=== PATIENT | female | born 1965 | race Caucasian/White ===

== ENCOUNTER → 2017-12-04 09:12 | Outpatient (CLI) | payer OTHER, SELFPAY ==
[2017-12-04 10:27] LABS: Add Manual Diff / Slide Review NO; Basophils Percent Auto 0.4 % (0-2); Eosinophils Percent Auto 2.8 % (2-4); Hematocrit 39.4 % (36-46); Hemoglobin 13.7 g/dL (12.0-16.0); Lymphocytes Percent Auto 27.2 % (25-40); Mean Corpuscular HGB Conc 34.9 % (30-36); Mean Corpuscular Hemoglobin 32.6 PG (26-34); Mean Corpuscular Volume 93.6 fL (80-100); Monocytes Percent Auto 5.7 % (3-14); Neutrophils Absolute Auto 4600 /uL (3000-5900); Neutrophils Percent Auto 63.9 % (50-75); Platelet Count 278 X10^3/uL (150-400); Red Blood Cell Count 4.21 X10^6/uL (4.0-5.2); Red Cell Distribution Width 13.4 % (11.6-14.8); White Blood Cell Count 7.1 X10^3/uL (4.5-11.0)
[2017-12-04 10:46] LABS: Alanine Aminotransferase 31 IU/L (9-52); Albumin Globulin Ratio 1.5 (1.0-2.8); Alkaline Phosphatase 66 U/L (38-126); Aspartate Aminotransferase 20 IU/L (14-36); Bilirubin Total 0.4 mg/dL (0.2-1.3); Blood Urea Nitrogen 12 mg/dL (7-17); Calcium 9.1 mg/dL (8.4-10.2); Carbon Dioxide 26 mmol/L (22-32); Chloride 104 mmol/L (98-107); Cholesterol 224 mg/dL (140-199); Estimated Glomerular Filt Rate > 60.0 mL/min (>60); Globulin 2.7 g/dL (1.7-4.1); Glucose 101 mg/dL (70-100); HDL Cholesterol 46 mg/dL (40-60); HEMOLYSIS < 15 (0-50); LDL Cholesterol Calculated 149 mg/dL (<100); Potassium 4.3 mmol/L (3.4-5.1); Sodium 140 mmol/L (137-145); Total Protein 6.7 g/dL (6.3-8.2); Triglycerides 147 mg/dL (35-150)
[2017-12-04 10:48] LABS: C-Reactive Protein Quant < 0.5 mg/dL (<1.0); Rheumatoid Factor < 8.6 IU/mL (<12.0)
[2017-12-04 11:38] LABS: Erythrocyte Sedimentation Rate 5 MM/HR (0-20)
[2017-12-04 11:48] LABS: Thyroid Stimulating Hormone 3.04 uIU/mL (0.47-4.68)
[2017-12-07 20:40] LABS: ANA Screen NEGATIVE (Negative); DNA Antibody Crithidia IFA NEGATIVE (Negative); Rheumatoid Factor <14 IU/mL; Sjogren Antiboday SS-A <1.0 NEG AI (<1.0 NEGATIVE); Sjogren Antiboday SS-B <1.0 NEG AI (<1.0 NEGATIVE); Sm Antibody <1.0 NEG AI (<1.0 NEGATIVE); Sm/RNP Antibody <1.0 NEG AI (<1.0 NEGATIVE)
== END ==
PROVIDERS: PCP Internal Medicine; Visit Provider Internal Medicine
DX: F31.70 Bipolar disorder, currently in remission, most recent episode unspecified (principal); H91.90 Unspecified hearing loss, unspecified ear; M25.541 Pain in joints of right hand; M25.542 Pain in joints of left hand; Z82.61 Family history of arthritis
CPT/HCPCS: 36415; 80053; 80061; 84443; 85025; 85651; 86038; 86140; 86430

== ENCOUNTER → 2019-01-08 07:46 | Outpatient (CLI) | payer OTHER, SELFPAY ==
--- NOTE | 2019-01-08 | DI.US.S_ITS ---
PROCEDURE: US THYROID INDICATIONS: PROVIDER PALP THYROID NODULE TECHNIQUE: Real-time scanning was performed of the thyroid gland, with image documentation. COMPARISON: None. FINDINGS: Right: Thyroid lobe measures 3.9 x 1.1 x 1.0 cm, and is homogeneous in echotexture. Left: Thyroid lobe measures 4.1 x 1.4 x 1.0 cm, and is homogenous in echotexture. Isthmus: 4.0 mm thick. Nodule number: 1 Location: Isthmus Size: 0.7 x 0.3 x 0.9 cm. Composition: Predominately solid Echogenicity: Hypoechoic Shape: wider than tall. Margins: Smooth Echogenic foci: None Total points: 4 ACR TI-RADS category: Moderately suspicious Nodule number: 2 Location: Left mid Size: 0.6 x 0.6 x 0.5 cm. Composition: Solid Echogenicity: Hypoechoic Shape: wider than tall. Margins: Smooth Echogenic foci: None Total points: 4 ACR TI-RADS category: Moderately suspicious IMPRESSION: 2 small moderately suspicious thyroid nodules. Recommend continued followup ultrasound as detailed below. ACR TI-RADS definitions and recommendations: TI-RADS 1 (benign): 0 points. FNA not needed. TI-RADS 2 (not suspicious): 2 points. FNA not needed. TI-RADS 3 (mildly suspicious): 3 points. * FNA if 2.5 cm or larger, follow up if 1.5 cm or larger (at 1, 3, and 5 years). TI-RADS 4 (moderately suspicious): 4-6 points. * FNA if 1.5 cm or larger, follow up if 1 cm or larger (at 1, 2, 3, and 5 years). TI-RADS 5 (highly suspicious): 7 points or more. * FNA if 1 cm or larger, follow up if 0.5 cm or larger (every year for 5 years). Dictated by: Aaron COX Interpreted: Daisy Jane MD on 01/08/2019 at 13:10 Approved by: Daisy Jane M.D. on 01/08/2019 at 14:02
[2019-01-08 09:09] LABS: Add Manual Diff / Slide Review NO; Basophils Absolute Auto 100 /uL (0-100); Basophils Percent Auto 0.8 % (0-2); Eosinophils Absolute Auto 200 /uL (0-450); Eosinophils Percent Auto 2.7 % (2-4); Hematocrit 38.8 % (36-46); Hemoglobin 13.3 g/dL (12.0-16.0); Lymphocytes Absolute Auto 2200 /uL (1100-4500); Lymphocytes Percent Auto 32.1 % (25-40); Mean Corpuscular HGB Conc 34.2 % (30-36); Mean Corpuscular Hemoglobin 32.4 PG (26-34); Mean Corpuscular Volume 94.8 fL (80-100); Monocytes Absolute Auto 400 /uL (0-900); Monocytes Percent Auto 5.6 % (3-14); Neutrophils Absolute Auto 4100 /uL (1500-7000); Neutrophils Percent Auto 58.8 % (50-75); Platelet Count 289 X10^3/uL (150-400); Red Blood Cell Count 4.09 X10^6/uL (4.0-5.2); Red Cell Distribution Width 13.4 % (11.6-14.8); White Blood Cell Count 6.9 X10^3/uL (4.5-11.0)
[2019-01-08 09:19] LABS: Alanine Aminotransferase 15 IU/L (9-52); Albumin 4.2 g/dL (3.5-5.0); Albumin Globulin Ratio 1.5 (1.0-2.8); Alkaline Phosphatase 63 U/L (38-126); Aspartate Aminotransferase 17 IU/L (14-36); Bilirubin Total 0.3 mg/dL (0.2-1.3); Blood Urea Nitrogen 12 mg/dL (7-17); Calcium 9.1 mg/dL (8.4-10.2); Carbon Dioxide 25 mmol/L (22-32); Chloride 96 mmol/L (98-107); Cholesterol 218 mg/dL (140-199); Estimated Glomerular Filt Rate > 60.0 mL/min (>60); Globulin 2.8 g/dL (1.7-4.1); Glucose 97 mg/dL (70-100); HDL Cholesterol 47 mg/dL (40-60); HEMOLYSIS < 15 (0-50); LDL Cholesterol Calculated 146 mg/dL (<100); Potassium 4.2 mmol/L (3.4-5.1); Sodium 130 mmol/L (137-145); Triglycerides 123 mg/dL (35-150)
[2019-01-08 09:37] LABS: Vitamin D 25 Hydroxy (D3) 29.2 ng/mL (30.0-100.0)
[2019-01-08 09:50] LABS: TSH w/ Reflex to FT4 2.96 uIU/mL (0.47-4.68)
== END ==
LOC: US 08:17 → AC 10:43 → US 01-20 11:32
PROVIDERS: Family Provider Nurse Practitioner Psychiatric/Mental Health; Visit Provider Internal Medicine
DX: Z13.220 Encounter for screening for lipoid disorders (principal); Z13.21 Encounter for screening for nutritional disorder; E04.2 Nontoxic multinodular goiter; N95.1 Menopausal and female climacteric states
CPT/HCPCS: 36415; 76536; 80053; 80061; 82306; 83001; 83002; 84443; 85025

== ENCOUNTER → 2019-02-26 10:49 | Outpatient (CLI) | payer OTHER, SELFPAY ==
[2019-02-26 12:20] LABS: Sodium Urine Random 153 mmol/L (30-90)
[2019-02-26 12:29] LABS: Blood Urea Nitrogen 15 mg/dL (7-17); Calcium 9.6 mg/dL (8.4-10.2); Carbon Dioxide 26 mmol/L (22-32); Chloride 98 mmol/L (98-107); Estimated Glomerular Filt Rate > 60.0 mL/min (>60); Glucose 91 mg/dL (70-100); HEMOLYSIS < 15 (0-50); Potassium 4.7 mmol/L (3.4-5.1); Sodium 134 mmol/L (137-145)
[2019-03-04 13:20] LABS: Osmolality Urine 725
[2019-03-04 13:23] LABS: Osmolality, Serum 276
== END ==
PROVIDERS: Family Provider Nurse Practitioner Psychiatric/Mental Health; PCP Internal Medicine; Visit Provider Internal Medicine
DX: E87.1 Hypo-osmolality and hyponatremia (principal)
CPT/HCPCS: 36415; 80048; 83930; 83935; 84300

== ENCOUNTER → 2019-04-01 10:30 | Outpatient (CLI) | payer OTHER, SELFPAY ==
--- NOTE | 2019-04-01 | DI.RAD.S_ITS ---
PROCEDURE: XR CHEST 2V INDICATIONS: pulmonary distress TECHNIQUE: 2 views of the chest were acquired. COMPARISON: None. FINDINGS: Surgical changes and devices: None. Lungs and pleura: Lungs are clear. No pleural effusions or pneumothorax. Mediastinum: Mediastinal contours are normal. Heart size is normal. Bones and chest wall: No suspicious bony abnormalities. Soft tissues appear unremarkable. IMPRESSION: No acute cardiopulmonary disease process. Dictated by: Cleo Beltran MD, PhD on 04/01/2019 at 10:56 Approved by: Cleo Beltran MD, PhD on 04/01/2019 at 10:56
== END ==
PROVIDERS: Family Provider Nurse Practitioner Psychiatric/Mental Health; PCP Internal Medicine; Visit Provider Internal Medicine
DX: E22.2 Syndrome of inappropriate secretion of antidiuretic hormone (principal)
CPT/HCPCS: 71046

== ENCOUNTER → 2020-01-25 08:13 | Outpatient (CLI) | payer OTHER, SELFPAY ==
[2020-01-25 08:43] LABS: Add Manual Diff / Slide Review NO; Basophils Absolute Auto 0 /uL (0-100); Basophils Percent Auto 0.9 % (0-2); Eosinophils Absolute Auto 200 /uL (0-450); Eosinophils Percent Auto 3.3 % (2-4); Hemoglobin 12.9 g/dL (12.0-16.0); Lymphocytes Absolute Auto 2000 /uL (1100-4500); Lymphocytes Percent Auto 35.3 % (25-40); Mean Corpuscular Hemoglobin 32.4 PG (26-34); Mean Corpuscular Volume 95.3 fL (80-100); Monocytes Absolute Auto 400 /uL (0-900); Monocytes Percent Auto 7.2 % (3-14); Neutrophils Absolute Auto 3000 /uL (1500-7000); Neutrophils Percent Auto 53.3 % (50-75); Platelet Count 264 X10^3/uL (150-400); Red Blood Cell Count 3.99 X10^6/uL (4.0-5.2); Red Cell Distribution Width 13.6 % (11.6-14.8); White Blood Cell Count 5.7 X10^3/uL (4.5-11.0)
[2020-01-25 09:01] LABS: Alanine Aminotransferase 18 IU/L (<35); Albumin 3.7 g/dL (3.5-5.0); Albumin Globulin Ratio 1.4 (1.0-2.8); Alkaline Phosphatase 54 U/L (38-126); Aspartate Aminotransferase 18 IU/L (14-36); BUN Creatinine Ratio 22.2 (6-22); Bilirubin Total 0.4 mg/dL (0.2-1.3); Blood Urea Nitrogen 12 mg/dL (7-17); Calcium 8.5 mg/dL (8.4-10.2); Carbon Dioxide 27 mmol/L (22-32); Chloride 101 mmol/L (98-107); Cholesterol 209 mg/dL (140-199); Estimated Glomerular Filt Rate > 60.0 mL/min (>60); Globulin 2.7 g/dL (1.7-4.1); Glucose 98 mg/dL (70-100); HDL Cholesterol 56 mg/dL (40-60); HEMOLYSIS < 15 (0-50); LDL Cholesterol Calculated 121 mg/dL (<100); Potassium 4.2 mmol/L (3.4-5.1); Sodium 131 mmol/L (137-145); Total Protein 6.4 g/dL (6.3-8.2); Triglycerides 158 mg/dL (35-150)
[2020-01-25 09:35] LABS: Free T3, Triiodothyronine Free 2.56 pg/mL (2.77-5.27); T4 Total Thyroxine 4.18 ug/dL (5.5-11.0)
[2020-01-25 09:46] LABS: TSH w/ Reflex to FT4 3.07 uIU/mL (0.47-4.68)
[2020-01-25 11:33] LABS: Sodium Urine Random 215 mmol/L (30-90)
[2020-01-26 14:38] LABS: Osmolality Urine 812 mOsmol/kg (.); Osmolality, Serum 274 mOsmol/kg (275-295)
== END ==
PROVIDERS: Family Provider Nurse Practitioner Psychiatric/Mental Health; PCP Internal Medicine; Referring Provider Internal Medicine; Visit Provider Internal Medicine
DX: E78.5 Hyperlipidemia, unspecified (principal); E22.2 Syndrome of inappropriate secretion of antidiuretic hormone; E04.1 Nontoxic single thyroid nodule
CPT/HCPCS: 36415; 80053; 80061; 83930; 83935; 84300; 84436; 84443; 84481; 85025

== ENCOUNTER → 2020-04-25 09:13 | Outpatient (CLI) | payer OTHER, SELFPAY ==
--- NOTE | 2020-04-25 | DI.US.S_ITS ---
PROCEDURE: US THYROID INDICATIONS: NODULE TECHNIQUE: Real-time scanning was performed of the thyroid gland, with image documentation. COMPARISON: [facility], US, US THYROID, 01/08/2019, 11:03. FINDINGS: Right: Thyroid lobe measures 3.4 x 1.3 x 1.4 cm, and is homogeneous in echotexture. Left: Thyroid lobe measures 4.3 x 1.4 x 1.1 cm. Isthmus: 4 mm thick. Nodule number: 1 Location: Left mid thyroid Size: 0.6 x 0.6 x 0.5 cm, previously measuring 0.6 x 0.6 x 0.5 cm. Composition: Solid Echogenicity: Hypoechoic Shape: wider than tall. Margins: Smooth Echogenic foci: None. Total points: 4 ACR TI-RADS category: 4 There is a previously described nodule involving the isthmus which on the current study is seen to be a vessel with a color Doppler flow within it and not a thyroid nodule. IMPRESSION: Stable thyroid nodule seen within the left mid thyroid. The previously described isthmus nodule is a vessel and not a nodule. By published criteria, no specific imaging follow-up is recommended. ACR TI-RADS definitions and recommendations: TI-RADS 1 (benign): 0 points. FNA not needed. TI-RADS 2 (not suspicious): 2 points. FNA not needed. TI-RADS 3 (mildly suspicious): 3 points. * FNA if 2.5 cm or larger, follow up if 1.5 cm or larger (at 1, 3, and 5 years). TI-RADS 4 (moderately suspicious): 4-6 points. * FNA if 1.5 cm or larger, follow up if 1 cm or larger (at 1, 2, 3, and 5 years). TI-RADS 5 (highly suspicious): 7 points or more. * FNA if 1 cm or larger, follow up if 0.5 cm or larger (every year for 5 years). Dictated by: Michael Irving M.D. on 04/25/2020 at 9:50 Approved by: Michael Irving M.D. on 04/25/2020 at 9:52
== END ==
PROVIDERS: Family Provider Nurse Practitioner Psychiatric/Mental Health; PCP Internal Medicine; Referring Provider Internal Medicine; Visit Provider Internal Medicine
DX: E04.1 Nontoxic single thyroid nodule (principal)
CPT/HCPCS: 76536

== ENCOUNTER → 2021-06-23 14:40 | Outpatient (CLI) | payer OTHER, SELFPAY ==
--- NOTE | 2021-06-23 | DI.MG.S_ITS ---
BILATERAL DIGITAL SCREENING MAMMOGRAM 3D/2D WITH CAD: 06/23/2021 CLINICAL: Routine screening. Family history of breast cancer. Comparison is made to exams dated: 05/17/2020 mammogram and 03/04/2019 mammogram - outside location. The tissue of both breasts is heterogeneously dense. This may lower the sensitivity of mammography. Current study was also evaluated with a Computer Aided Detection (CAD) system. No significant masses, calcifications, or other findings are seen in either breast. There has been no significant interval change. IMPRESSION: NEGATIVE There is no mammographic evidence of malignancy. A 1 year screening mammogram is recommended. This exam was interpreted at Station ID: [id number]. NOTE: For mammograms, a report in lay terms will be sent to the patient. Approximately 15% of breast malignancies will not be visualized mammographically. In the management of a palpable breast mass, a negative mammogram must not discourage biopsy of a clinically suspicious lesion. Electronically Signed By: Bere woods/dante:06/23/2021 16:04:59 letter sent: Normal Exam ACR BI-RADS Category 1: Negative 3341F
== END ==
PROVIDERS: Family Provider Nurse Practitioner Psychiatric/Mental Health; PCP Internal Medicine; Referring Provider Internal Medicine; Visit Provider Internal Medicine
DX: Z12.31 Encounter for screening mammogram for malignant neoplasm of breast (principal); Z80.3 Family history of malignant neoplasm of breast
CPT/HCPCS: 77063; 77067

== ENCOUNTER → 2021-10-20 10:03 | Outpatient (CLI) | payer OTHER, SELFPAY ==
[2021-10-20 11:07] LABS: COVID19 -Nasal RAPID Negative (Negative)
== END ==
PROVIDERS: Family Provider Nurse Practitioner Psychiatric/Mental Health; PCP Internal Medicine; Visit Provider Surgery
DX: Z20.822 Contact with and (suspected) exposure to COVID-19 (principal); Z01.812 Encounter for preprocedural laboratory examination
CPT/HCPCS: 87635; C9803

== ENCOUNTER 2021-10-23 08:30 | Day surgery (SDC) | payer OTHER, SELFPAY ==
--- NOTE | 2021-10-23 | PATH_ITS ---
[facility] Accession Number: [id number] No. of containers..02 Tissue . 01 Material submitted: . PART A: colon - ASCENDING COLON POLYP PART B: colon - RECTOSIGMOID POLYP . 01 Diagnosis: A. Ascending Colon Polyp, Biopsy: Sessile serrated adenoma. . B. Rectosigmoid Polyp, Biopsy: Hyperplastic polyp. MRV 10/25/2021 1218 Local . 01 Electronically signed: . Amy David MD, Pathologist NPI- [id number] . 01 Gross description: . Part A: ASCENDING COLON POLYP: Received in formalin are 2 fragment(s) of ge, soft tissue measuring 1.5 x 0.5 x 0.1 cm to 0.5 x 0.4 x 0.1 cm submitted entirely in 1 cassette(s) Part B: RECTOSIGMOID POLYP: Received in formalin is 1 fragment(s) of ge, soft tissue measuring 0.3 x 0.2 x 0.1 cm submitted entirely in 1 cassette(s) /CPE 10/24/2021 0507 Local . 01 Pathologist provided ICD-10: D12.2, D12.7 . 01 CPT . 778471, 658720 Specimen Comment: A courtesy copy of this report has been sent to [phone] Performed at: 01 [facility] [address] [place] [address], [place], [place] [id number] MD Rohan Mcpherson MD Phone: [phone]
[2021-10-23 08:47] VITALS: BP 121/82; PULSE 84; RESP 18; TEMP 36.8; O2SAT 97; BMI 34.9
[2021-10-23] MEDS: SODIUM CHLORIDE 0.9% 1,000 ML 84 ML IV (09:06)
--- NOTE | 2021-10-23 09:29 | PM.HP.1 ---
History of Present Illness History of Present Illness Date Patient Seen: 10/23/21 Time Patient Seen: 09:29 Chief complaint: SDC Narrative: Here for colon cancer screening Patient History Medical History Bipolar disorder (~2003) Chicken pox (~1973) Depression (~1982) Hearing loss (~2005) Malaria (~1995) Surgical History Anesthesia History of anterior cruciate ligament surgery (~2002) History of rotator cuff surgery (~03/27/17) History of surgery (~2013) Family & Social History Family History Father Atrial fibrillation Hypertension Hyperlipidemia Mental health problem Depression Cognitive dysfunction Mother Hyperlipidemia Hypertension Brother Rheumatoid arthritis Grandfather Stroke Grandmother Mental health problem Depression Grandfather No problems noted. Grandmother Cancer Social History: household members spouse Tobacco & Substance use: Smoking Status Never smoker alcohol intake current alcohol intake frequency a few times a week Substance Use Type does not use Meds Home Medications and Allergies Home Medications Medication Instructions Recorded Confirmed Type bupropion HCl 300 mg 24 hr tablet, 300 mg PO QAM #90 tabs 10/18/21 10/23/21 Rx extended release calcium carbonate 600 mg calcium 600 mg PO DAILY 10/18/21 10/23/21 History (1,500 mg) tablet (Calcium) cholecalciferol (vitamin D3) 25 25 mcg PO DAILY 10/18/21 10/23/21 History mcg (1,000 unit) capsule multivitamin with iron-mineral 1 tab PO DAILY 10/18/21 10/23/21 History oxcarbazepine 600 mg tablet 1,200 mg PO BEDTIME #180 tabs 10/18/21 10/23/21 Rx (Trileptal) risperidone 2 mg tablet (Risperdal) 2 mg PO BEDTIME #90 tabs 10/18/21 10/23/21 Rx Allergies Allergy/AdvReac Type Severity Reaction Status Date / Time No Known Drug Allergies Allergy Verified 10/23/21 08:40 Review of Systems Review of Systems ROS: Yes All systems reviewed with the patient and are negative except as otherwise documented Exam Vital Signs (past 8 hours): - 10/23/21 08:47 Temperature 98.2 F Pulse Rate 84 Respiratory Rate 18 Blood Pressure 121/82 Pulse Oximetry 97 Oxygen Delivery Method Room Air Oxygen Delivery Method Room Air Const General: cooperative HENMT Head: normal to inspection Eyes General: appearance normal, both eyes and all related structures Neck Neck: normal visual inspection Chest Chest: normal inspection of the chest Resp Effort & Inspection: normal respiratory effort Cardio Rate: regular rate GI Inspection: normal to inspection Skin General: no rashes or lesions noted Neuro General: patient alert and patient awake Extrem General: normal to inspection and no pedal edema Psych Appearance: grossly normal Assessment & Plan Assessment & Plan narrative: 56-year-old female here for colon cancer screening. Colonoscopy is pursued today. Time Spent With Patient Critical Care time: I spent a total of [] minutes of critical care time on this patient's care today; this time is exclusive of procedural time.
--- NOTE | 2021-10-23 09:30 | PM.PREOP ---
Pre-operative Note COVID-19 COVID-19 status: Negative Result date/Date tested (Pos, Neg/Pending): 10/20/21 Criteria for continued procedure: Possibility delay results in more complex future surgery or treatment Interval Note History & Physical reviewed/Exam performed by Physician: Yes Changes to H&P: No ASA Class (for procedural sedation): II
--- NOTE | 2021-10-23 10:36 | P.OP.COLON_ITS ---
Operative Date/Time/Diagnoses Date of procedure: 10/23/21 Time of procedure: 10:37 Pre-op diagnosis: Colon cancer screening Post-op diagnosis: same Procedure & Clinicians Study performed: Colonoscopy with hot snare polypectomies Same procedure as scheduled: Yes Indications: Colon cancer screening Surgeon: Rodrigo Belle Procedure Notes SCOAP/Timeout: Done Procedure in detail: After the risks and benefits were explained, written and verbal informed consent was obtained. The patient was brought into the procedure room and placed into the left lateral decubitus position. Please see nurse before and after school daycare worker notes for sedation details. Digital rectal examination was accomplished. The scope was introduced into the patient and advanced under direct visualization to the cecum as identified by the appendiceal orifice and ileocecal valve. The scope was slowly withdrawn to carefully examine the mucosa for any defects or lesions. Comprehensive imaging was accomplished throughout the rectum including the dentate line. The colon was decompressed, the scope was then removed from the patient who tolerated the procedure well. Adult colonoscope Bowel prep adequate Scope withdrawal time: 24 minutes Sedation minutes: 32 Complications: none Impression: There was a 8-9 mm sessile polyp in the ascending colon. This was removed with hot snare. A typically, after the snare had come through the polyp there was a fibrin scored that remained and did not seem to appropriately sever with application of the hot snare. I used appear cut to sever this cord of tissue. There were no bleeding complications. However but because this was an unusual feature with polypectomy, I elected to place a couple of prophylactic Endo clips over the polypectomy defect. There was a smaller 5 mm polyp at the rectosigmoid junction also removed with hot snare. No additional pathology was appreciated throughout. Endoscopic diagnosis colon polyps Post-procedure Plan for aftercare: 1. Await histopathology 2. Timing of repeat colonoscopy will be contingent on pathology results. Disposition: PACU
[2021-10-23 10:39] VITALS: BP 116/94; PULSE 72; RESP 24; TEMP 36.8; O2SAT 100
[2021-10-23 10:44] VITALS: BP 114/80; PULSE 79; RESP 20; TEMP 36; O2SAT 100
[2021-10-23 10:49] VITALS: BP 117/78; PULSE 66; RESP 16; TEMP 36.1; O2SAT 100
[2021-10-23 10:50] VITALS: BP 118/77; PULSE 65; RESP 19; TEMP 36.1; O2SAT 99
== END 2021-10-23 11:04 | disposition home or self-care (01) ==
PROVIDERS: Family Provider Nurse Practitioner Psychiatric/Mental Health; PCP Internal Medicine; Referring Provider Internal Medicine Gastroenterology; Visit Provider Internal Medicine Gastroenterology
PROC: 0DJD8ZZ Inspection of Lower Intestinal Tract, Via Natural or Artificial Opening Endoscopic (ICD-10-PCS; CPT 45378; principal; 2021-10-23 09:30)
DX: Z12.11 Encounter for screening for malignant neoplasm of colon (principal); D12.2 Benign neoplasm of ascending colon; K62.1 Rectal polyp
CPT/HCPCS: 45385; J2704

== ENCOUNTER → 2022-06-05 08:59 | Outpatient (CLI) | payer OTHER, SELFPAY ==
[2022-06-05 09:48] LABS: Add Manual Diff / Slide Review NO; Basophils Absolute Auto 100 /uL (0-100); Basophils Percent Auto 0.8 % (0-2); Eosinophils Absolute Auto 100 /uL (0-450); Eosinophils Percent Auto 2.2 % (2-4); Hemoglobin 13.5 g/dL (12.0-16.0); Lymphocytes Absolute Auto 2500 /uL (1100-4500); Lymphocytes Percent Auto 36.9 % (25-40); Mean Corpuscular HGB Conc 33.8 % (30-36); Mean Corpuscular Hemoglobin 31.7 PG (26-34); Mean Corpuscular Volume 93.9 fL (80-100); Monocytes Absolute Auto 400 /uL (0-900); Monocytes Percent Auto 6.6 % (3-14); Neutrophils Absolute Auto 3600 /uL (1500-7000); Neutrophils Percent Auto 53.5 % (50-75); Platelet Count 276 X10^3/uL (150-400); Red Blood Cell Count 4.26 X10^6/uL (4.0-5.2); Red Cell Distribution Width 13.8 % (11.6-14.8); White Blood Cell Count 6.8 X10^3/uL (4.5-11.0)
[2022-06-05 10:14] LABS: Alanine Aminotransferase 31 IU/L (<35); Albumin Globulin Ratio 1.5 (1.0-2.8); Alkaline Phosphatase 94 U/L (38-126); Aspartate Aminotransferase 21 IU/L (14-36); BUN Creatinine Ratio 26.5 (6-22); Bilirubin Total 0.2 mg/dL (0.2-1.3); Blood Urea Nitrogen 18 mg/dL (7-17); Calcium 9.2 mg/dL (8.4-10.2); Carbon Dioxide 26 mmol/L (22-32); Chloride 101 mmol/L (98-107); Cholesterol 263 mg/dL (140-199); Estimated Glomerular Filt Rate > 60 mL/min (>60); Globulin 2.7 g/dL (1.7-4.1); Glucose 100 mg/dL (70-100); HDL Cholesterol 54 mg/dL (40-60); HEMOLYSIS < 15 (0-50); LDL Cholesterol Calculated 165 mg/dL (<100); Potassium 4.4 mmol/L (3.4-5.1); Sodium 135 mmol/L (137-145); Total Protein 6.7 g/dL (6.3-8.2); Triglycerides 220 mg/dL (35-150)
[2022-06-05 10:39] LABS: TSH w/ Reflex to FT4 2.63 uIU/mL (0.47-4.68)
== END ==
PROVIDERS: PCP Family Medicine; Referring Provider Family Medicine; Visit Provider Family Medicine
DX: E03.9 Hypothyroidism, unspecified (principal); F31.70 Bipolar disorder, currently in remission, most recent episode unspecified
CPT/HCPCS: 36415; 80053; 80061; 84443; 85025

== ENCOUNTER → 2022-06-27 11:03 | Outpatient (CLI) | payer OTHER, SELFPAY ==
--- NOTE | 2022-06-27 11:04 | DI.MG.S_ITS ---
BILATERAL DIGITAL SCREENING MAMMOGRAM 3D/2D WITH CAD: 06/27/2022 CLINICAL: Routine screening. Family history of breast cancer. Comparison is made to exams dated: 06/23/2021 mammogram - [facility], 05/17/2020 mammogram, and 03/04/2019 mammogram - outside location. Both breasts are heterogeneously dense, which may obscure small masses (category c / 51-75% glandular tissue). Current study was also evaluated with a Computer Aided Detection (CAD) system. No significant masses, calcifications, or other findings are seen in either breast. There has been no significant interval change. IMPRESSION: NEGATIVE There is no mammographic evidence of malignancy. A 1 year screening mammogram is recommended. Based on the Tyrer Cuzick model (a risk assessment model) the patient's lifetime risk is 13.7% and her 10 year risk is 5.1%. According to the ACR, ACS, and NCCN guidelines, an annual breast MRI exam along with mammogram is recommended if the patient's lifetime risk is 20% or greater. This exam was interpreted at Station ID: [id number]. NOTE: For mammograms, a report in lay terms will be sent to the patient. Approximately 15% of breast malignancies will not be visualized mammographically. In the management of a palpable breast mass, a negative mammogram must not discourage biopsy of a clinically suspicious lesion. Electronically Signed By: Medhat singh/dante:06/27/2022 12:02:16 letter sent: Normal Exam ACR BI-RADS Category 1: Negative 3341F
== END ==
PROVIDERS: PCP Family Medicine; Referring Provider Family Medicine; Visit Provider Family Medicine
DX: Z12.31 Encounter for screening mammogram for malignant neoplasm of breast (principal); Z80.3 Family history of malignant neoplasm of breast
CPT/HCPCS: 77063; 77067

== ENCOUNTER → 2022-12-20 07:21 | Outpatient (CLI) | payer OTHER, SELFPAY ==
[2022-12-20 08:47] LABS: Alanine Aminotransferase 40 IU/L (<35); Albumin 4.1 g/dL (3.5-5.0); Albumin Globulin Ratio 1.6 (1.0-2.8); Alkaline Phosphatase 89 U/L (38-126); Aspartate Aminotransferase 26 IU/L (14-36); BUN Creatinine Ratio 26.2 (6-22); Bilirubin Total 0.5 mg/dL (0.2-1.3); Blood Urea Nitrogen 17 mg/dL (7-17); Calcium 9.6 mg/dL (8.4-10.2); Carbon Dioxide 25 mmol/L (22-32); Chloride 98 mmol/L (98-107); Cholesterol 200 mg/dL (140-199); Estimated Glomerular Filt Rate > 60 mL/min (>60); Globulin 2.5 g/dL (1.7-4.1); Glucose 99 mg/dL (70-100); HDL Cholesterol 55 mg/dL (40-60); HEMOLYSIS < 15 (0-50); LDL Cholesterol Calculated 114 mg/dL (<100); Potassium 4.6 mmol/L (3.4-5.1); Sodium 132 mmol/L (137-145); Total Protein 6.6 g/dL (6.3-8.2); Triglycerides 153 mg/dL (35-150)
== END ==
PROVIDERS: PCP Family Medicine; Referring Provider Family Medicine; Visit Provider Family Medicine
DX: E78.5 Hyperlipidemia, unspecified (principal)
CPT/HCPCS: 36415; 80053; 80061

== ENCOUNTER → 2024-02-19 07:14 | Outpatient (CLI) | payer BC, SELFPAY ==
[2024-02-19 08:09] LABS: Add Manual Diff / Slide Review NO; Basophils Absolute Auto 100 /uL (0-100); Basophils Percent Auto 0.7 % (0-2); Eosinophils Absolute Auto 200 /uL (0-450); Eosinophils Percent Auto 3.1 % (2-4); Hematocrit 40.4 % (36-46); Hemoglobin 13.7 g/dL (12.0-16.0); Lymphocytes Absolute Auto 3200 /uL (1100-4500); Lymphocytes Percent Auto 40.3 % (25-40); Mean Corpuscular HGB Conc 33.8 % (30-36); Mean Corpuscular Hemoglobin 31.8 PG (26-34); Mean Corpuscular Volume 94.1 fL (80-100); Monocytes Absolute Auto 500 /uL (0-900); Monocytes Percent Auto 6.7 % (3-14); Neutrophils Absolute Auto 3900 /uL (1500-7000); Neutrophils Percent Auto 49.2 % (50-75); Platelet Count 277 X10^3/uL (150-400); Red Blood Cell Count 4.29 X10^6/uL (4.0-5.2); Red Cell Distribution Width 14.1 % (11.6-14.8)
[2024-02-19 08:31] LABS: HEMOLYSIS < 15 (0-50)
[2024-02-19 08:32] LABS: Alanine Aminotransferase 44 IU/L (<35); Albumin 3.9 g/dL (3.5-5.0); Albumin Globulin Ratio 1.7 (1.0-2.8); Alkaline Phosphatase 78 U/L (38-126); Aspartate Aminotransferase 28 IU/L (14-36); BUN Creatinine Ratio 22.8 (6-22); Bilirubin Total 0.3 mg/dL (0.2-1.3); Blood Urea Nitrogen 18 mg/dL (7-17); Calcium 9.5 mg/dL (8.4-10.2); Carbon Dioxide 24 mmol/L (22-32); Chloride 110 mmol/L (98-107); Cholesterol 204 mg/dL (140-199); Estimated Glomerular Filt Rate > 60 mL/min (>60); Globulin 2.3 g/dL (1.7-4.1); Glucose 102 mg/dL (80-110); HDL Cholesterol 54 mg/dL (40-60); LDL Cholesterol Calculated 123 mg/dL (<100); Sodium 139 mmol/L (137-145); Total Protein 6.2 g/dL (6.3-8.2); Triglycerides 137 mg/dL (35-150)
[2024-02-19 08:37] LABS: Potassium 4.3 mmol/L (3.4-5.1)
[2024-02-19 08:59] LABS: TSH w/ Reflex to FT4 1.97 uIU/mL (0.47-4.68)
== END ==
PROVIDERS: PCP Family Medicine; Referring Provider Family Medicine; Visit Provider Family Medicine
DX: Z00.00 Encounter for general adult medical examination without abnormal findings (principal); E78.5 Hyperlipidemia, unspecified; F31.70 Bipolar disorder, currently in remission, most recent episode unspecified
CPT/HCPCS: 36415; 80053; 80061; 84443; 85025

== ENCOUNTER → 2024-02-28 11:28 | Outpatient (CLI) | payer BC, SELFPAY ==
--- NOTE | 2024-02-28 11:30 | DI.MG.S_ITS ---
BILATERAL DIGITAL SCREENING MAMMOGRAM 3D/2D WITH CAD: 02/28/2024 CLINICAL: Routine screening. Family history of breast cancer. Comparison is made to exams dated: 06/27/2022 mammogram, 06/23/2021 mammogram - [facility], and 05/17/2020 mammogram - outside location. There are scattered areas of fibroglandular density (category b / 25%-50% glandular tissue). Current study was also evaluated with a Computer Aided Detection (CAD) system. No significant masses, calcifications, or other findings are seen in either breast. There has been no significant interval change. IMPRESSION: NEGATIVE There is no mammographic evidence of malignancy. A 1 year screening mammogram is recommended. Based on the Tyrer Cuzick model (a risk assessment model) the patient's lifetime risk is 8.8% and her 10 year risk is 3.6%. According to the ACR, ACS, and NCCN guidelines, an annual breast MRI exam along with mammogram is recommended if the patient's lifetime risk is 20% or greater. This exam was interpreted at Station ID: [id number]. NOTE: For mammograms, a report in lay terms will be sent to the patient. Approximately 15% of breast malignancies will not be visualized mammographically. In the management of a palpable breast mass, a negative mammogram must not discourage biopsy of a clinically suspicious lesion. Electronically Signed By: Lam romero/dante:02/28/2024 12:41:12 letter sent: Normal Exam ACR BI-RADS Category 1: Negative
== END ==
PROVIDERS: PCP Family Medicine; Referring Provider Family Medicine; Visit Provider Family Medicine
DX: Z12.31 Encounter for screening mammogram for malignant neoplasm of breast (principal); Z80.3 Family history of malignant neoplasm of breast
CPT/HCPCS: 77063; 77067

== ENCOUNTER → 2025-03-03 11:47 | Outpatient (CLI) | payer BC, SELFPAY ==
--- NOTE | 2025-03-03 11:47 | DI.MG.S_ITS ---
MM screening mammo BI: 03/03/2025. BI-RADS: 1 CLINICAL: 60-year old female for bilateral screening mammogram. Tyrer-Cuzick lifetime risk of 13.2%. No personal or first-degree family history of breast cancer. Current reported family history of breast cancer: paternal grandmother. PRIOR EXAMS 02/28/2024, 06/27/2022, 06/23/2021. MAMMOGRAPHY TECHNIQUE: 2D and 3D (tomosynthesis) digital mammographic views obtained, with additional images as needed for full coverage. Current study was also evaluated with a Computer Aided Detection (CAD) system. DENSITY B. There are scattered areas of fibroglandular density. MAMMOGRAPHY FINDINGS Bilateral: No suspicious mass, asymmetry, microcalcification, or other abnormality seen. IMPRESSION: * No evidence of malignancy. RECOMMENDATIONS Bilateral * Annual screening mammography. OVERALL ASSESSMENT CATEGORY BI-RADS-1: Negative. The [employer] recommends annual screening mammography beginning at age 40 for women with average risk of breast cancer. ELECTRONICALLY SIGNED: Abdullahi Rocha M.D. on 03/04/2025 at 01:42:35 PM PT Interpreting Station ID: [id number]
== END ==
LOC: MAMMO 11:47
PROVIDERS: PCP Family Medicine; Referring Provider Family Medicine; Visit Provider Family Medicine
DX: Z12.31 Encounter for screening mammogram for malignant neoplasm of breast (principal); Z80.3 Family history of malignant neoplasm of breast
CPT/HCPCS: 77063; 77067

== ENCOUNTER → 2025-03-09 08:25 | Outpatient (CLI) | payer BC, SELFPAY ==
[2025-03-09 09:27] LABS: Add Manual Diff / Slide Review NO; Hematocrit 41.0 % (36-46); Hemoglobin 13.9 g/dL (12.0-16.0); Lymphocytes Absolute Auto 2400 /uL (1100-4500); Mean Corpuscular HGB Conc 34.0 % (30-36); Mean Corpuscular Hemoglobin 31.6 PG (26-34); Mean Corpuscular Volume 93.1 fL (80-100); Platelet Count 295 X10^3/uL (150-400)
[2025-03-09 09:49] LABS: Alanine Aminotransferase 37 IU/L (<35); Albumin 4.1 g/dL (3.5-5.0); Albumin Globulin Ratio 1.7 (1.0-2.8); Alkaline Phosphatase 68 U/L (38-126); Blood Urea Nitrogen 17 mg/dL (7-17); Calcium 9.5 mg/dL (8.4-10.2); Carbon Dioxide 21 mmol/L (22-32); Chloride 106 mmol/L (98-107); Cholesterol 188 mg/dL (140-199); Estimated Glomerular Filt Rate > 60 mL/min (>60); Globulin 2.4 g/dL (1.7-4.1); Glucose 97 mg/dL (70-99); HDL Cholesterol 72 mg/dL (40-60); HEMOLYSIS < 15 (0-50); Potassium 4.3 mmol/L (3.4-5.1); Sodium 137 mmol/L (137-145); Total Protein 6.5 g/dL (6.3-8.2); Triglycerides 157 mg/dL (35-150)
[2025-03-09 10:17] LABS: TSH w/ Reflex to FT4 1.51 uIU/mL (0.47-4.68)
== END ==
PROVIDERS: PCP Family Medicine; Referring Provider Family Medicine; Visit Provider Family Medicine
DX: Z00.00 Encounter for general adult medical examination without abnormal findings (principal); E03.9 Hypothyroidism, unspecified; F31.70 Bipolar disorder, currently in remission, most recent episode unspecified
CPT/HCPCS: 36415; 80053; 80061; 84443; 85025